=== PATIENT | male | born 1995 | race Caucasian/White ===

== ENCOUNTER 2018-12-22 18:11 | Emergency (ER) | payer BC ==
--- NOTE | 2018-12-22 19:17 | EDM.PDOC ---
ED HPI GENERAL MEDICAL PROBLEM - General Chief Complaint: Lower Extremity Injury/Pain Stated Complaint: RT KNEE INJURY Time Seen by Provider: 12/22/18 18:24 - History of Present Illness INITIAL COMMENTS - FREE TEXT/NARRATIVE: Mr. Andrew is a most pleasant 23-year-old man with a past surgical history significant for a right ACL repair using his patellar tendon in 2013. He states that he was playing full-gear football around 15:30 to 16:00 this afternoon. He states that he was blocking, when another player fell onto the back of his right knee. He is not sure if his knee was forced into a varus or valgus position, but he states that he immediately felt pain to the posterior and medial aspect of his knee. He is able to bear weight, but it is painful for him to walk. He states that he also rolled his right ankle, however, he states that it is minimal, and he is not acting for evaluation of it. He is otherwise uninjured. The patient's PCP is in [place], [place]. His Orthopedic Surgeon is in [place], [place]. The patient has not received any influenza vaccine this season. Right Knee Pain Score (Numeric/FACES): 8 - Related Data Allergies Allergy/AdvReac Type Severity Reaction Status Date / Time No Known Allergies Allergy Verified 12/22/18 18:19 Home Meds: Home Meds Hydrocodone/Acetaminophen [Shalimar 5-325 Tablet] 1 - 2 each PO Q8H PRN #10 tablet 12/22/18 [Rx] Ibuprofen 800 mg PO Q6H 12/22/18 [History] Past Medical History - Past Surgical History Musculoskeletal Surgical History: Reports: Other (See Below) (Right open ACL repair using patellar tendon, 2013) Social & Family History - Family History Family Medical History: Noncontributory - Tobacco Use Smoking Status *Q: Never Smoker - Caffeine Use Caffeine Use: Reports: None - Alcohol Use Alcohol Use History: Yes Alcohol Use Frequency: Weekly (Saturdays) - Recreational Drug Use Recreational Drug Use: No - Living Situation & Occupation Living situation: Reports: Single, Other (with a friend) Occupation: Student ([employer]) Review of Systems - Review of Systems Review Of Systems: ROS reveals no pertinent complaints other than HPI. ED EXAM, GENERAL - Physical Exam Exam: See Below Exam Limited By: No Limitations General Appearance: Alert, WD/WN, No Apparent Distress Extremities: Normal Range of Motion, No Pedal Edema, Normal Capillary Refill, Other (Minimal, if any, right knee joint effusion with no visible abnormality to the right knee, such as swelling, erythema, ecchymosis, or abrasion. There is tenderness to palpation of the medial and posterior knee; none to the anterior or lateral aspects. There is laxity with some pain induced to the medial knee by stressing the medial collateral ligament. No laxity or pain to stressing the lateral collateral ligament. Anterior and posterior drawer signs are negative. Neurovascular status of the right lower extremity is intact.) Neurological: Alert, Oriented, Normal Cognition Psychiatric: Normal Affect Skin Exam: Warm, Dry, Intact, Normal Color, No Rash Course - Vital Signs Last Recorded V/S: Last Vital Signs Temp 36.2 C 12/22/18 18:17 Pulse 74 12/22/18 18:17 Resp 18 12/22/18 18:17 BP 164/79 H 12/22/18 18:17 Pulse Ox 99 12/22/18 18:17 - Orders/Labs/Meds Orders: Active Orders 24 hr Category Date Time Status Influenza Vaccine Charge [RC] .DISCHARGE Care 12/22/18 19:33 Ordered Knee 3V Rt [CR] Stat Exams 12/22/18 18:25 Taken FLU Vacc [id number](6MOS+)/PF [Fluzone Quad Med 12/22/18 19:45 Once Syringe] 60 mcg IM .ONCE ONE Pharmacy to Dose - InFluenza V [Pharmacy to Dose - Med 12/22/18 19:33 Once InFluenza Vaccine] 1 each IM ONETIME ONE DME for Discharge [COMM] Stat Oth 12/22/18 19:17 Ordered Medication Orders Influenza Virus Vaccine (Pharmacy To Dose - Influenza Vaccine) 1 each IM ONETIME ONE Stop: 12/22/18 19:34 Influenza Virus Vaccine (Fluzone Quad Syringe) 60 mcg IM .ONCE ONE Stop: 12/22/18 19:46 Meds: Medications Generic Name Dose Route Start Last Admin Trade Name Freq PRN Reason Stop Dose Admin Influenza Virus Vaccine 1 each 12/22/18 19:33 Pharmacy To Dose - Influenza Vaccine IM 12/22/18 19:34 ONETIME ONE Influenza Virus Vaccine 60 mcg 12/22/18 19:45 Fluzone Quad Syringe IM 12/22/18 19:46 .ONCE ONE Discontinued Medications Generic Name Dose Route Start Last Admin Trade Name Freq PRN Reason Stop Dose Admin Hydrocodone Bitart/Acetaminophen 2 tab 12/22/18 19:18 Shalimar 325-5 Mg PO 12/22/18 19:19 ONETIME ONE Ibuprofen 600 mg 12/22/18 19:18 Motrin PO 12/22/18 19:19 ONETIME ONE - Re-Assessments/Exams Free Text/Narrative Re-Assessment/Exam: 12/22/18 19:06 3-view radiographs of the right knee appear to demonstrate a small metallic plate along the lateral distal femur, proximal to the condyles. No fracture or dislocation identified. No apparent effusion. Formal read per the Radiologist pending. 12/22/18 19:18 On examination, the patient has some laxity with pain induced to stressing the medial collateral ligament, indicating a partial (Grade II) tear of the medial collateral ligament. The patient will be placed into a knee immobilizer. He is to ice the medial aspect of his knee as much as possible over the weekend, and I would like him to follow-up with Dr. Lepe at the next available appointment, hopefully as soon as 12/25/2018. The patient will be given some Shalimar and ibuprofen here, then start taking ibuprofen [id number] over the weekend. I will write him a prescription for a small quantity of additional Shalimar. 12/22/18 19:33 The patient will be given an influenza vaccine prior to discharge. Departure - Departure Time of Disposition: 19:21 Disposition: Home, Self-Care 01 Condition: Good Clinical Impression: Tear of medial collateral ligament of right knee - Discharge Information *PRESCRIPTION DRUG MONITORING PROGRAM REVIEWED*: Not Applicable *COPY OF PRESCRIPTION DRUG MONITORING REPORT IN PATIENT ROSALINA: Not Applicable Prescriptions: Hydrocodone/Acetaminophen [Shalimar 5-325 Tablet] 1 - 2 each PO Q8H PRN #10 tablet PRN Reason: Pain (Severe 7-10) Referrals: Elton Lepe MD [Physician] - Forms: ED Department Discharge Additional Instructions: You were seen in the emergency room after your right knee was injured while playing football. Workup in the ER included x-rays of your right knee, which did not find any broken bones or dislocations. Based on your history, physical exam, and ER x-rays, you most likely have a partial (Grade II) tear of your medial collateral ligament. Your right knee has been placed into a knee immobilizer. Apply this over your clothes every morning, and remove at bedtime. We recommend that you ice the medial aspect of your knee as much as possible for the next 2 days. Take vezr-[id number] ibuprofen, 3-4 tablets (600-800 mg) every 8 hours, with food, [id number]. You have been prescribed the opioid pain reliever Shalimar. You may take 1-2 tablets of Shalimar up to every 8 hours, as needed for pain not relieved by ibuprofen. If you take Shalimar, do not drive for 12 hours after taking. Shalimar may cause constipation, so consider taking a stool softener. Contact the office of the Orthopedic Surgeon Dr. Elton Lepe on Monday , 12/24/2018, in order to make an appointment to be seen as soon as possible. Make sure that the dental receptionist knows that you are following up from the ER. If any other problems, please do not hesitate to return to the ER. *You received an influenza vaccine during your ER visit.* - My Orders Last 24 Hours: My Active Orders 12/22/18 18:25 Knee 3V Rt [CR] Stat 12/22/18 19:17 DME for Discharge [COMM] Stat 12/22/18 19:33 Influenza Vaccine Charge [RC] .DISCHARGE Pharmacy to Dose - InFluenza V [Pharmacy to Dose - InFluenza Vaccine] 1 each IM ONETIME ONE 12/22/18 19:45 FLU Vacc [id number](6MOS+)/PF [Fluzone Quad Syringe] 60 mcg IM .ONCE ONE - Assessment/Plan Last 24 Hours: My Active Orders 12/22/18 18:25 Knee 3V Rt [CR] Stat 12/22/18 19:17 DME for Discharge [COMM] Stat 12/22/18 19:33 Influenza Vaccine Charge [RC] .DISCHARGE Pharmacy to Dose - InFluenza V [Pharmacy to Dose - InFluenza Vaccine] 1 each IM ONETIME ONE 12/22/18 19:45 FLU Vacc [id number](6MOS+)/PF [Fluzone Quad Syringe] 60 mcg IM .ONCE ONE
[2018-12-22] MEDS ORDERED: Acetaminophen/HYDROcodone 325-5 MG Tab PO ONE (19:18)
[2018-12-22] MEDS ORDERED: Ibuprofen 600 MG Tab PO ONE (19:18)
[2018-12-22] MEDS ORDERED: FLU Vacc QS2019-20(6MOS+)/PF 60 MCG/0.5 ML SYRINGE IM ONE (19:45)
--- NOTE | 2018-12-23 09:24 | CR ---
Right knee: AP, lateral and sunrise patellar views right knee were obtained. Comparison: No previous knee exam is available. Prior ACL repair is noted. Minimal joint space narrowing is seen laterally. Patellofemoral joint appears within normal limits. Well-corticated bony density is noted off the anterior tibial tuberosity which appears old. No acute fracture or other abnormality is appreciated. Impression: 1. Slight lateral joint space narrowing and previous ACL repair. 2. Other incidental findings. Nothing acute is appreciated. Diagnostic code #2
== END 2018-12-22 19:55 | disposition home or self-care (01) ==
LOC: JD.ED 18:11
DX: S83.411A Sprain of medial collateral ligament of right knee, initial encounter (principal); Z98.890 Other specified postprocedural states; Z23 Encounter for immunization; W50.0XXA Accidental hit or strike by another person, initial encounter; Y93.61 Activity, american tackle football
CPT/HCPCS: 73562; 90471; 90686; 99283; A9270; G0008